=== PATIENT | female | born 1940 | race Caucasian/White ===

== ENCOUNTER 2022-06-03 14:50 | Inpatient (IN) | payer MEDICARE ==
[~2022-06-03] VITALS: Ht 157.5 cm; Wt 57.6 kg
--- NOTE | 2022-06-03 15:15 | NUR ---
[id number] HOME FOR WEAKNESS, FREQUENT FALLS FOR THE PAST MONTH. PLACED ON BED, AAOX3, BREATHING EVEN AND UNLABORED SATURATING AT 98%RA, TACHYCARDIC HI-[id number].
--- NOTE | 2022-06-03 15:41 | NUR ---
NIKHIL TAYLOR CAREGIVER,
[2022-06-03] MEDS ORDERED: IV NS 0.9% 1,000 ML IV ONE (16:00)
--- NOTE | 2022-06-03 16:07 | NUR ---
BLOOD DRAWN AND SENT TO LAB
[2022-06-03 16:16] LABS: BASOPHILS # (AUTO) 0.1 K/uL (0.0-0.2); BASOPHILS % (AUTO) 0.3 % (0.0-2.0); EOSINOPHILS % (AUTO) 0.1 % (0.0-6.0); HEMATOCRIT 30 % (33-45); LYMPHOCYTES # (AUTO) 0.4 K/uL (0.8-4.8); LYMPHOCYTES % (AUTO) 2.1 % (20.0-44.0); MEAN CORPUSCULAR HGB CONC 30 g/dl (31.0-36.0); MEAN CORPUSCULAR VOLUME 61 fL (82-100); MONOCYTES # (AUTO) 1.4 K/uL (0.1-1.30); MONOCYTES % (AUTO) 7.3 % (2.0-12.0); NEUTROPHILS # (AUTO) 17.8 K/uL (1.8-8.9); NEUTROPHILS % (AUTO) 90.2 % (43.0-81.0); PLATELET COUNT (AUTO) 254 K/uL (150-450); RED BLOOD CELL COUNT(AUTO) 4.87 MIL/uL (4.0-5.2); WHITE BLOOD COUNT (AUTO) 19.8 K/uL (4.3-11.0)
--- NOTE | 2022-06-03 16:17 | NUR ---
SWAB FOR COVID19 SENT TO LAB
[2022-06-03 16:33] LABS: CALCIUM, SERUM 9.1 mg/dL (8.5-10.1); CARBON DIOXIDE 21 mmol/L (21-32); CHLORIDE 95 mmol/L (98-107); CREATININE 2.2 mg/dL (0.6-1.3); GLUCOSE 116 mg/dL (74-106); POTASSIUM 4.6 mmol/L (3.5-5.1); SODIUM SERUM 131 mmol/L (136-145); UREA NITROGEN, BLOOD 67 mg/dL (7-18)
[2022-06-03 16:47] LABS: ALANINE AMINOTRANSFERASE 72 U/L (12-78); ALBUMIN 3.4 g/dL (3.4-5.0); ALKALINE PHOSPHATASE 229 U/L (46-116); ASPARTATE AMINOTRANSFERASE 161 U/L (15-37); BILIRUBIN,TOTAL 0.8 mg/dL (0.2-1.0); TOTAL PROTEIN, SERUM 7.7 g/dL (6.4-8.2)
[2022-06-03] MEDS ORDERED: CEFTRIAXONE 1 G in IV D5W 50 ML IV ONE (17:30)
--- NOTE | 2022-06-03 17:33 | NUR ---
[facility] CALLED RENTAL CLERK PAGED.
--- NOTE | 2022-06-03 17:41 | NUR ---
URINE SAMPLE SENT TO LAB
--- NOTE | 2022-06-03 17:56 | NUR ---
BED 116-1, ADMITTING AWARE
--- NOTE | 2022-06-03 18:20 | NUR ---
REPORT GIVEN TO JASON BARRAGAN ROOM 116-1 FOR ANGELA
[2022-06-03] MEDS ORDERED: ONDANSETRON HCL/PF 4 MG/2 ML VIAL IVP PRN (18:30)
[2022-06-03] MEDS ORDERED: MAG HYDROX/AL HYDROX/SIMETH 30 ML UDC PO PRN (18:30)
[2022-06-03] MEDS ORDERED: ACETAMINOPHEN 325 MG TABLET PO PRN (18:30)
[2022-06-03] MEDS ORDERED: Z GUARD REMEDY 4 OZ OINT TP PRN (18:30)
[2022-06-03] MEDS ORDERED: MAGNESIUM HYDROXIDE 30 ML UDC PO PRN (18:30)
[2022-06-03 18:53] LABS: BILIRUBIN,URINE NEGATIVE (NEGATIVE); COLOR,URINE YELLOW (YELLOW); LEUKOCYTE ESTERASE ,URINE NEGATIVE (NEGATIVE); NITRITE, URINE NEGATIVE (NEGATIVE); PROTEIN,URINE NEGATIVE (NEGATIVE); UGLUCOSE NEGATIVE (NEGATIVE); UROBILINOGEN,URINE 0.2 EU/dL (0.2)
[2022-06-03 18:59] LABS: BACTERIA,URINE None seen /HPF (None Seen); MUCUS,URINE Few /LPF (None Seen); URINE AMORPHOUS URATE Few /HPF (None Seen); WBC,URINE 0-2 /HPF (0-3)
[2022-06-03 19:09] LABS: LYMPHOCYTES % (MANUAL) 8 % (16-48); MONOCYTES % (MANUAL) 5 % (0-11.0); NEUTROPHILS % (MANUAL) 87 (42-76)
--- NOTE | 2022-06-03 19:10 | NUR ---
RN NOTE [id number] RECEIVED 81 Y/O F PATIENT FROM ER. TRANSFERRED VIA GURNEY ACCOMPANIED BY 2 ER STAFF. PT IS A/O X1 NOTED WITH PERIODS OF CONFUSION. ON RA TOLERATING WELL SATING 96%. NO ACUTE DISTRESS NOTED, ADMISSION CARE RENDERED, NOTED WITH SACRUM REDNESS, PICTURES TAKEN AND PLACED ON CHART. IV ACCESS ON RAC #20G INTACT, PATENT AND FLUSHING WELL. SAFETY MEASURES IN PLACED, BED IN LOWEST AND LOCKED POSITION, CALL LIGHT WITHIN REACH AND INSTRUCTED PT TO CALL FOR ASSISTANCE, BED ALARM ON, WILL CONTINUE TO MONITOR THROUGHOUT THE SHIFT.
[2022-06-03] MEDS: IV NS 0.9% 1,000 ML IV PRN (19:44)
[2022-06-03 20:00] VITALS: BP 130/75
--- NOTE | 2022-06-03 20:10 | NUR ---
RN NOTE CALLED CAREGIVER NIKHIL TO OBTAIN PT MEDICAL HISTORY. PER CAREGIVER; PT LIVES ALONE, NO MEDICAL HISTORY, NO MAINTENANCE MEDICATION, NO HOSPITALIZATION WITHIN 6 MOS, CAN'T OBTAIN FAMILY MEMBER PHONE NUMBER AT THIS TIME, WILL MAINTAIN PT CODE STATUS TO . UPDATES WERE GIVEN IN REGARDS TO PT ADMISSION STATUS.
[2022-06-04 04:00] VITALS: BP 126/65
[2022-06-04 06:57] LABS: BASOPHILS % (AUTO) 0.2 % (0.0-2.0); EOSINOPHILS % (AUTO) 0.5 % (0.0-6.0); HEMATOCRIT 24 % (33-45); HEMOGLOBIN 7.3 g/dL (11.5-14.8); LYMPHOCYTES # (AUTO) 0.2 K/uL (0.8-4.8); LYMPHOCYTES % (AUTO) 1.2 % (20.0-44.0); MEAN CORPUSCULAR HGB CONC 31 g/dl (31.0-36.0); MEAN CORPUSCULAR VOLUME 63 fL (82-100); MONOCYTES # (AUTO) 2.6 K/uL (0.1-1.30); MONOCYTES % (AUTO) 16.6 % (2.0-12.0); NEUTROPHILS # (AUTO) 12.8 K/uL (1.8-8.9); NEUTROPHILS % (AUTO) 81.5 % (43.0-81.0); PLATELET COUNT (AUTO) 162 K/uL (150-450); RED BLOOD CELL COUNT(AUTO) 3.81 MIL/uL (4.0-5.2); WHITE BLOOD COUNT (AUTO) 15.8 K/uL (4.3-11.0)
--- NOTE | 2022-06-04 06:57 | NUR ---
MS RN CLOSING NOTE PT REMAINS ON BED AWAKE, A/O X1 NOTED WITH PERIODS OF CONFUSION. ON RA TOLERATING WELL SATING 98%. NO ACUTE DISTRESS NOTED, IV ACCESS ON RAC #20G INTACT, PATENT AND FLUSHING WELL RUNNING NS AT 75 ML/HR. SAFETY MEASURES IN PLACED, BED IN LOWEST AND LOCKED POSITION, CALL LIGHT WITHIN REACH AND INSTRUCTED PT TO CALL FOR ASSISTANCE, BED ALARM ON, WILL ENDORSE TO AM SHIFT NURSE FOR CONTINUITY OF CARE.
[2022-06-04] MEDS: IV NS 0.9% 1,000 ML IV PRN (07:01)
[2022-06-04 07:12] LABS: CALCIUM, SERUM 8.3 mg/dL (8.5-10.1); CREATININE 1.2 mg/dL (0.6-1.3); MAGNESIUM 2.4 mg/dL (1.8-2.4); PHOSPHORUS 4.6 mg/dL (2.5-4.9); POTASSIUM 3.4 mmol/L (3.5-5.1)
--- NOTE | 2022-06-04 07:28 | NUR ---
MS RN OPENING NOTES: RECEIVED PATIENT IN BED, ASLEEP EASILY AROUSED WITH STIMULI.A/O X 1 AND NEEDS FREQUENT REORIENTATION. NO SOB OR CARDIAC DISTRESS NOTED. ON ROOM AIR AND TOLERATING WELL. IV ACCESS ON RAC GAUGE 20 PATENT,INTACT AND INFUSING NS 1L @75ML/HR. SAFETY MEASURES MAINTAINED: BED LOCKED AND IN LOWEST POSITION, SIDE RAILS UP X 2. CALL LIGHT AND EASY REACH FOR HELP. WILL MONITOR PT ACCORDINGLY.
[2022-06-04] MEDS ORDERED: POTASSIUM CHLORIDE 20 MEQ TAB.PRT.SR PO ONE (08:00)
[2022-06-04 09:29] LABS: IRON, SERUM 5 ug/dl (50-175); TOTAL IRON BINDING CAPACITY 290 ug/dl (250-450)
[2022-06-04 12:00] VITALS: BP 116/60
[2022-06-04] MEDS: SOD FERRIC GLUC 125 MG in IV NS 0.9% 100 ML IV SCH (14:37)
--- NOTE | 2022-06-04 15:34 | NUR ---
RN NOTES: IF PATIENT RETAINING URINE INSERT STARKEY CATHETER PER DR KWON. PATIENT BEEN DRINKING WATER (APPROX 800-100ML OF WATER/JUICE) AND WE KEPT CHECKING UP HER IF SHE PEED. ASSESSED PT AND BLADDER DISTENDED, CHECKED PVR AND IT WAS [address] KWON, AFTER I TEXTED MD PATIENT PEED ALOT (APPROX 700ML) STILL MD ORDERED INSERT STARKEY CATH IF PT RETAINING URINE. ORDER NOTED. WILL ENDORSED FOR ANGELA.
--- NOTE | 2022-06-04 15:42 | NUR ---
RN NOTES: RE INSERTED IV ACCESS ON LEFT FA GAUGE 22 PATENT, INTACT AND FLUSHING WELL.
--- NOTE | 2022-06-04 18:45 | NUR ---
MS RN CLOSING NOTES: PATIENT IN BED, AWAKE.A/O X 1-2 PT IS MORE VERBALLY RESPONSIVE WITH EPISODES OF FORGETFULNESS AND CONFUSION AND PT NEEDS FREQUENT REORIENTATION. NO SOB OR CARDIAC DISTRESS NOTED. ON ROOM AIR AND TOLERATING WELL. IV ACCESS ON RAC GAUGE 20, RFA GAUGE 22 PATENT,INTACT AND INFUSING NS 1L @75ML/HR. PATIENT HAD GOOD APPETITE ON HER 3 MEALS. ABLE TO VOID X 2. SAFETY MEASURES MAINTAINED: BED LOCKED AND IN LOWEST POSITION, SIDE RAILS UP X 2. CALL LIGHT AND EASY REACH FOR HELP. WILL MONITOR PT ACCORDINGLY. ENDORSED TO LABOR ARBITRATOR RN FOR CONTINUITY OF CARE.
--- NOTE | 2022-06-04 19:45 | NUR ---
RN NOTE RECEIVED PT AWAKE, VERBALLY RESPONSIVE. AOX1 WITH SOME CONFUSION, REDIRECTED. ON ROOM AIR, NO SIGNS OF DISTRESS. PT DENIES ANY PAIN OR SOB. NS AT 75ML/HR INFUSING WELL. ALL SAFETY MEASURES IN PLACE PER PROTOCOL. WILL CONTINUE TO MONITOR
[2022-06-04 21:08] VITALS: BP 104/64
[2022-06-05] MEDS: IV NS 0.9% 1,000 ML IV PRN ×2 (03:09→20:22)
[2022-06-05 04:00] VITALS: BP 112/62
--- NOTE | 2022-06-05 06:45 | NUR ---
RN NOTE PT SLEEPING, AROUSES EASILY. ASK FOR WATER MULTIPLE TIMES, GIVEN. CONTINUE ON NS AT 75ML.HR, INFUSING WELL. PT TOLERATES ROOM AIR NO SIGNS OF DISTRESS NOTED. REMAIN AFEBRILE. ALL SAFETY MEASURES REMAIN IN PLACE. WILL ENDORSE TO AM SHIFT NURSE FOR ANGELA
[2022-06-05 07:26] LABS: POTASSIUM 3.5 mmol/L (3.5-5.1)
--- NOTE | 2022-06-05 07:30 | NUR ---
RN NOTE RECEIVED PATIENT IN BED RESTING ALERT ORIETNEDX1-2 VERBALLY RESPONSIVE,ON ROOM AIR O2:100% HR 101 MED SURG MONITORING,IV SITE IS ON RAC/AND RIGHT FOREARM INTACT PATENT,IV NS RUNNING 75CC/HR,INCONTINENT BOWEL/BLADDER.SAFETY MEASURE IMPLEMENT BED IN LOW POSITION AND LOCKED,HEAD OF THE BED ELEVATED CALL LIGHT WITHIN REACH,BED ALARM IS ON CONTINUE TO MONITOR.
[2022-06-05 07:39] LABS: CALCIUM, SERUM 7.8 mg/dL (8.5-10.1); CREATININE 0.7 mg/dL (0.6-1.3); MAGNESIUM 2.2 mg/dL (1.8-2.4); PHOSPHORUS 1.8 mg/dL (2.5-4.9)
[2022-06-05 07:57] LABS: BASOPHILS % (AUTO) 0.4 % (0.0-2.0); EOSINOPHILS % (AUTO) 0.2 % (0.0-6.0); HEMATOCRIT 22 % (33-45); HEMOGLOBIN 7.1 g/dL (11.5-14.8); LYMPHOCYTES # (AUTO) 3.5 K/uL (0.8-4.8); LYMPHOCYTES % (AUTO) 35.7 % (20.0-44.0); MEAN CORPUSCULAR HGB CONC 32 g/dl (31.0-36.0); MEAN CORPUSCULAR VOLUME 64 fL (82-100); MONOCYTES # (AUTO) 0.5 K/uL (0.1-1.30); MONOCYTES % (AUTO) 4.8 % (2.0-12.0); NEUTROPHILS # (AUTO) 5.8 K/uL (1.8-8.9); NEUTROPHILS % (AUTO) 58.9 % (43.0-81.0); PLATELET COUNT (AUTO) 108 K/uL (150-450); RED BLOOD CELL COUNT(AUTO) 3.48 MIL/uL (4.0-5.2); WHITE BLOOD COUNT (AUTO) 9.9 K/uL (4.3-11.0)
[2022-06-05 08:41] LABS: LYMPHOCYTES % (MANUAL) 7 % (16-48); MONOCYTES % (MANUAL) 6 % (0-11.0); NEUTROPHILS % (MANUAL) 87 (42-76)
[2022-06-05] MEDS: POTASSIUM PHOSPHATE MM 7.5 MMOL in IV NS 0.9% 100 ML IV SCH ×2 (09:10→12:18)
[2022-06-05 12:00] VITALS: BP 119/67
[2022-06-05] MEDS: SOD FERRIC GLUC 125 MG in IV NS 0.9% 100 ML IV SCH (13:35)
--- NOTE | 2022-06-05 18:42 | NUR ---
RN NOTE PATIENT REMAINS ALERT ORIENTED X2 VERBALLY RESPONSIVE ON ROOM AIR O2:99% NO SOB NOT ACUTE DISTRESS NOTED,IV SITE IS ON RIGHT AC/RIGHT FOREARM INTACT PATENT ON NS 75CC/HR ALL DUE MEDS GIVEN MD ORDERED KEPT CLEAN AND DRY ALL THE TIME,KEPT HEAD OF THE BED ELEVATED ALL THE TIME,ALL NEEDS MET,ENDORSE NEXT COMING SHIFT FOR CONTINUATION OF CARE.
--- NOTE | 2022-06-05 19:25 | NUR ---
MED SURGE OPEN NOTE: ALERT AND ORIENTED TO NAME AND PLACE REORIENTED TO TIME AND PLACE. IN ON RAC G20 PATENT NO S/S OF COMPLICATIONS. IV ON RIGHT FOREARM G22 IVF OF NS 75 ML /HR. BLE EDEMA NOTED ELEVATED WITH PILLOWS. HOB ELEVATED SEMI-FOWLERS POSITION, BED IN LOW POSITION, LOCKED,AND EXIT ALARM ON. CALL LIGHT IN REACH. DENIES PAIN OR DISCOMFORT.
[2022-06-05 20:00] VITALS: BP 108/62
[2022-06-06 04:00] VITALS: BP 121/70
[2022-06-06 06:21] LABS: BASOPHILS % (AUTO) 0.1 % (0.0-2.0); CARBON DIOXIDE 24 mmol/L (21-32); CHLORIDE 106 mmol/L (98-107); CREATININE 0.5 mg/dL (0.6-1.3); EOSINOPHILS % (AUTO) 0.9 % (0.0-6.0); GLUCOSE 105 mg/dL (74-106); HEMATOCRIT 24 % (33-45); HEMOGLOBIN 7.3 g/dL (11.5-14.8); LYMPHOCYTES # (AUTO) 0.7 K/uL (0.8-4.8); LYMPHOCYTES % (AUTO) 6.7 % (20.0-44.0); MEAN CORPUSCULAR HGB CONC 31 g/dl (31.0-36.0); MEAN CORPUSCULAR VOLUME 63 fL (82-100); MONOCYTES # (AUTO) 1.1 K/uL (0.1-1.30); MONOCYTES % (AUTO) 11.2 % (2.0-12.0); NEUTROPHILS # (AUTO) 7.9 K/uL (1.8-8.9); NEUTROPHILS % (AUTO) 81.1 % (43.0-81.0); PLATELET COUNT (AUTO) 109 K/uL (150-450); POTASSIUM 3.5 mmol/L (3.5-5.1); RED BLOOD CELL COUNT(AUTO) 3.74 MIL/uL (4.0-5.2); SODIUM SERUM 138 mmol/L (136-145); UREA NITROGEN, BLOOD 17 mg/dL (7-18); WHITE BLOOD COUNT (AUTO) 9.7 K/uL (4.3-11.0)
--- NOTE | 2022-06-06 06:55 | NUR ---
MED SURGE CLOSING NOTE: ALERT AND ORIENTED TO NAME AND PLACE REORIENTED TO TIME AND PLACE. IN ON RAC G20 PATENT NO S/S OF COMPLICATIONS. IV ON RIGHT FOREARM G22 IVF OF NS 75 ML /HR. BLE EDEMA NOTED ELEVATED WITH PILLOWS. BILATERAL HALF SIDE RAILS UP X2.HOB ELEVATED SEMI-FOWLERS POSITION, BED IN LOW POSITION, LOCKED,AND EXIT ALARM ON. CALL LIGHT IN REACH. DENIES PAIN OR DISCOMFORT. ABLE TO SLEEP WELL.
--- NOTE | 2022-06-06 07:20 | NUR ---
MED SURGE OPENING NOTE: ALERT AND ORIENTED X2-3. IN ON RAC G20 PATENT NO S/S OF COMPLICATIONS. IV ON RIGHT FOREARM G22 IVF OF NS 75 ML /HR. BLE EDEMA NOTED ELEVATED WITH PILLOWS. BILATERAL HALF SIDE RAILS UP X2.HOB ELEVATED SEMI-FOWLERS POSITION, BED IN LOW POSITION, LOCKED,AND EXIT ALARM ON. CALL LIGHT IN REACH.WILL MONITOR
[2022-06-06 08:00] VITALS: BP 118/72
[2022-06-06] MEDS ORDERED: FERR325T23 PO (08:48)
[2022-06-06] MEDS ORDERED: DOCU-141 PO (08:48)
[2022-06-06] MEDS: IV NS 0.9% 1,000 ML IV PRN (09:08)
[2022-06-06 16:00] VITALS: BP 126/62
[2022-06-06] MEDS: SOD FERRIC GLUC 125 MG in IV NS 0.9% 100 ML IV SCH (16:09)
--- NOTE | 2022-06-06 19:00 | NUR ---
MED SURGE CLOSING NOTE: PATIENT IN BED ALERT AND ORIENTED TO NAME,PLACE AND TIME. IV IN ON RAC G20OF NS 75 ML /HR . PATENT NO S/S OF COMPLICATIONS.OF NS 75 ML /HR. BLE EDEMA NOTED ELEVATED WITH PILLOWS. BILATERAL HALF SIDE RAILS UP X2.HOB ELEVATED SEMI-FOWLERS POSITION, BED IN LOW POSITION, LOCKED,AND EXIT ALARM ON. CALL LIGHT IN REACH. DENIES PAIN OR DISCOMFORT. ENDORSED TO MERCHANT BANKER RN FOR ANGELA
[2022-06-06 21:11] VITALS: BP 141/78
--- NOTE | 2022-06-07 06:33 | NUR ---
MS RN CLOSING NOTE PATIENT IN BED ALERT X3 WIT SOME CONFUSION. IV IN ON L WRIST G22G NS 75 ML /HR .BLE EDEMA NOTED ELEVATED WITH PILLOWS. BILATERAL HALF SIDE RAILS UP X2.HOB ELEVATED SEMI-FOWLERS POSITION, BED IN LOW POSITION, LOCKED,AND EXIT ALARM ON. CALL LIGHT IN REACH. DENIES PAIN OR DISCOMFORT. WILL ENDORSE CARE TO DAY SHIFT NURSE.
--- NOTE | 2022-06-07 07:30 | NUR ---
RN MS NOTES PT IN BED, AWAKE, ALERT, WITH SOME CONFUSION, VERBALLY RESPONSIVE, NO COMPLAINT OF PAIN, NOT IN DISTRESS, CALL LIGHT WITHIN REACH, KEPT COMFORTABLE.
[2022-06-07 08:00] VITALS: BP 122/75
--- NOTE | 2022-06-07 09:20 | NUR ---
RN MS NOTES PT SEEN BY PHYSICAL THERAPIST, TOLERATED EXERCISES WELL.
[2022-06-07] MEDS: SOD FERRIC GLUC 125 MG in IV NS 0.9% 100 ML IV SCH (15:28)
[2022-06-07 16:00] VITALS: BP 110/59
--- NOTE | 2022-06-07 19:04 | NUR ---
RN MS NOTES PT IN BED, RESTING, NO COMPLAINT OF PAIN OR ANY DISCOMFORT, IV FLUIDS INFUSING WELL, PT INFORMED, VERBALIZED UNDERSTANDING, PM CARE PROVIDED, ALL NEEDS ATTENDED.
--- NOTE | 2022-06-07 19:30 | NUR ---
MS RN OPENING NOTE RECEIVED PATIENT IN BED; AWAKE, ALERT AND ORIENTED X 2 WITH SOME CONFUSION. ON ROOM AIR; TOLERATING WELL. BREATHING EVEN AND NONLABORED. NOT IN ANY FORM OF RESPIRATORY DISTRESS. WITH IV ACCESS ON LEFT WRIST 22G; PATENT AND INTACT INFUSING WITH NS 1L REGULATED @ 75 ML /HR. WITH BILATERAL LOWER EXTREMITY EDEMA NOTED; ELEVATED WITH PILLOWS. SAFETY PRECAUTIONS IMPLEMENTED: CALL LIGHT AND TABLE WITHIN REACH, SIDE RAILS UP X 2, HEAD OF BED ELEVATED @ 30 DEGREES, BED IN LOWEST LOCKED POSITION. WILL CONTINUE PLAN OF CARE.
[2022-06-07 20:00] VITALS: BP 112/66
--- NOTE | 2022-06-07 22:40 | NUR ---
MS SPANISH INTERPRETER NOTE DISCHARGED PATIENT IN STABLE CONDITION WITH STABLE VITAL SIGNS. NO S/S OF PAIN OR DISCOMFORT NOTED. NO SOB NOTED. DISCHARGED INSTRUCTIONS GIVEN TO THE PATIENT. IV SITE REMOVED AND COVERED WITH DRY DRESSING. NO BLEEDING NOTED. PATIENT WAS PICKED UP BY [facility] GOING TO [facility]. CHARGE NURSE AND MD AWARE OF THE DISCHARGE.
== END 2022-06-07 22:35 | DRG 682 ==
LOC: ER 14:52 → MEDSG1 19:08 → MED 06-06 21:48
PROVIDERS: ADMIT Internal Medicine; ATTEND Internal Medicine
DX: N17.0 Acute kidney failure with tubular necrosis (principal); G93.41 Metabolic encephalopathy; E87.1 Hypo-osmolality and hyponatremia; E86.0 Dehydration; E86.1 Hypovolemia; D50.9 Iron deficiency anemia, unspecified; D72.829 Elevated white blood cell count, unspecified; Z20.822 Contact with and (suspected) exposure to COVID-19; F43.9 Reaction to severe stress, unspecified; R29.6 Repeated falls; M81.0 Age-related osteoporosis without current pathological fracture; E87.6 Hypokalemia; E83.39 Other disorders of phosphorus metabolism
CPT/HCPCS: 36415; 71045-TC; 80048-TC; 80053-TC; 81001; 83540-TC; 83735-TC; 83880; 84100-TC; 84484-TC; 85025-TC; 87081-TC; 92526; 92611-TC; 97530-TC; C9803; G0378; J0696; J2916; J3490; J7030; J7050; J7060